=== PATIENT | male | born 2000 | race Caucasian/White ===

== ENCOUNTER 2018-09-13 10:00 | Emergency (ER) | payer SELFPAY ==
[~2018-09-13] VITALS: Ht 180.3 cm; Wt 90.7 kg
--- NOTE | 2018-09-13 10:10 | NUR ---
FOOT ELEVATED ON PILLOWS.
--- NOTE | 2018-09-13 10:15 | NUR ---
WARM BLANKET PUT ON PT'S FOOT.
--- NOTE | 2018-09-13 11:11 | Diagnostic Imaging Report ---
EXAMINATION: Right ankle at 10:21H. INDICATION: Injury ankle pain. 3 views were obtained. There are no prior studies available for comparison. There is no fracture, dislocation or acute bony abnormality evident. The ankle mortise is not widened. The talar dome is smooth. There is generalized soft tissue edema about the ankle joint, particularly over the lateral malleolus. IMPRESSION: There is soft tissue edema about the ankle joint but there is no evidence for an acute bony abnormality. Dictated by: Dictated on workstation # [id number]
--- NOTE | 2018-09-13 11:14 | NUR ---
PT REQUETS SOMETHING TO DRINK. NOTIFIED NOT UNTIL THE RESULTS CAME BACK.
--- NOTE | 2018-09-13 11:20 | NUR ---
IN ROOM AT THIS TIME.
--- NOTE | 2018-09-13 11:22 | Diagnostic Imaging Report ---
EXAMINATION: Right foot 1024h. INDICATION: Injury 3 views were obtained. There is no fracture, dislocation or acute bony abnormality evident. The Lisfranc joint appears to be intact. There is mild generalized soft tissue edema. There is no radiopaque foreign body identified. IMPRESSION: There is soft tissue edema of the foot but there is no for evidence of an acute bony abnormality or for a radiopaque foreign body. Dictated by: Dictated on workstation # [id number]
--- NOTE | 2018-09-13 11:24 | NUR ---
ICE CHIPS GIVEN
--- NOTE | 2018-09-13 11:34 | ED Lower Extremity ---
General Chief Complaint: Lower Extremity Stated Complaint: ANKLE INJ Nursing Triage Note: ARRIVED VIA AMB USING CRUTCHES. STATES HE HURT HIS RIGHT FOOT/ANKLE PLAYING BASKETBALL X2 DAYS AGO. WENT TO THE [facility] TODAY WHO SENT HIM HERE. Nursing Sepsis Screen: No Definite Risk Source: patient Exam Limitations: no limitations History of Present Illness Date Seen by Provider: Sep 13, 2018 Time Seen by Provider: 10:01 Initial Comments This 18-year-old young man presents to the emergency room as directed by Dr. Akbar from [facility] Student [facility] with concerns about a right foot and ankle injury. Patient rolled his foot by inversion while playing basketball 2 days ago. It has become markedly swollen and bruised. This morning his toes became cool and pale with sluggish capillary refill. His great toe has also become more fixed in a plantar flexed position. Dr. Akbar was concerned about possible compartment syndrome or limb ischemia and sent him to the emergency room. He denies any other injury. He has been ambulating with crutches. Allergies and Home Medications Allergies Coded Allergies: No Known Drug Allergies (Unverified , 09/13/18) Home Medications No Active Prescriptions or Reported Meds Patient Home Medication List Home Medication List Reviewed: Yes Review of Systems Constitutional: no symptoms reported EENTM: no symptoms reported Respiratory: no symptoms reported Cardiovascular: see HPI Gastrointestinal: no symptoms reported Genitourinary: no symptoms reported Musculoskeletal: see HPI Skin: see HPI Psychiatric/Neurological: No Symptoms Reported Past Ouholro-Cqevwz-Ovetkr Hx Past Med/Social Hx: Reviewed Nursing Past Med/Soc Hx Patient Social History Recent Foreign Travel: No Contact w/Someone Who Travel: No Recent Infectious Disease Expo: No Seasonal Allergies Seasonal Allergies: No Past Medical History Surgeries: No Respiratory: No Cardiac: No Neurological: No Genitourinary: No Gastrointestinal: No Musculoskeletal: No Endocrine: No HEENT: No Cancer: No Psychosocial: No Integumentary: No Physical Exam Vital Signs Vital Signs - First Documented 09/13/18 10:05 Temp 98.0 Pulse 85 Resp 16 B/P (MAP) 167/97 (120) Pulse Ox 96 O2 Delivery Room Air Capillary Refill : Less Than 3 Seconds Height, Weight, BMI Height: 5'11.00" Weight: 200lbs. oz. 90.598056fc; BMI Method:Stated General Appearance: WD/WN, mild distress HEENT: normal ENT inspection Neck: normal inspection Cardiovascular: regular rate, rhythm, no edema, no murmur Respiratory: lungs clear, normal breath sounds, no respiratory distress Gastrointestinal: non tender, soft Legs: bilateral leg non-tender, bilateral leg normal inspection, bilateral leg normal range of motion Knees: bilateral knee non-tender, bilateral knee normal inspection, bilateral knee normal range of motion, bilateral knee no evidence of injury Ankles: left ankle non-tender, left ankle normal inspection, left ankle normal range of motion; right ankle bone tenderness, right ankle ecchymosis, right ankle joint effusion, right ankle limited range of motion, right ankle pain, right ankle soft tissue tenderness, right ankle swelling Feet: left foot non-tender, left foot normal inspection, left foot normal range of motion, left foot no evidence of injury; right foot bone tenderness, right foot ecchymosis, right foot limited range of motion, right foot pain, right foot soft tissue tenderness, right foot swelling Neurologic/Tendon: normal sensation, normal motor functions Neurologic/Psychiatric: 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, no motor/sensory deficits, alert, normal mood/affect, oriented x 3 Skin: warm/dry, ecchymosis Progress/Results/Core Measures Results/Orders My Orders Orders - JOSEFINA BRAGG MD Us Right Low Ext [id number] (09/13/18 10:07) Us Venous Lower Ext Rt (09/13/18 10:07) Foot, Right, 3 View (09/13/18 10:07) Ankle, Right, 3 Views (09/13/18 10:07) Steplite (09/13/18 12:20) Vital Signs/I&O 09/13/18 09/13/18 10:05 12:42 Temp 98.0 Pulse 85 78 Resp 16 16 B/P (MAP) 167/97 (120) 152/99 (116) Pulse Ox 96 98 O2 Delivery Room Air Room Air Blood Pressure Mean: 120 Progress Progress Note #1: Time: 11:30 Progress Note X-rays and arterial and venous ultrasounds were obtained. X-rays of the foot and ankle showed no fractures. Ultrasound demonstrated no venous abnormality. There was a significant decrease in flow in the dorsalis pedis artery but the artery was patent. I discussed the case with both Dr. Fortune and Dr. Suggs. For the time being, Dr. Suggs recommended monitoring the patient. He suggested significant elevation and a repeat exam in 1 to 2 hours. He recommended testing for pain with passive dorsiflexion of the lesser toes. This yielded very little change in pain level and was well-tolerated. Dr. Suggs believes based on exam finding that compartment syndrome is of low probability. If patient has any worsening of exam when reevaluated, we will consider obtaining compartment pressures. Progress Note #2: Progress Note Dr. Jordan presented to the emergency room on behalf of Dr. Suggs to assess the patient. He did not feel this patient was experiencing compartment syndrome. He recommended a boot and crutches for 3 weeks and strict elevation. Discharge instructions were reviewed with the patient had notes for school were provided. Diagnostic Imaging Diagonstic Imaging: Xray Comments Right foot x-ray viewed by me and report reviewed. Discussed with the radiologist. See report below: NAME: ADAMA ARCHER [facility] REC#: [id number] PT STATUS: REG ER : 2000 PHYSICIAN: JOSEFINA BRAGG MD ADMIT DATE: 09/13/18/ER Draft Date of Exam:09/13/18 FOOT, RIGHT, 3 VIEW EXAMINATION: Right foot 1024h. INDICATION: Injury 3 views were obtained. There is no fracture, dislocation or acute bony abnormality evident. The Lisfranc joint appears to be intact. There is mild generalized soft tissue edema. There is no radiopaque foreign body identified. IMPRESSION: There is soft tissue edema of the foot but there is no for evidence of an acute bony abnormality or for a radiopaque foreign body. Dictated on workstation # [id number] Dict: 09/13/18 1108 Trans: 09/13/18 1121 [facility] [id number] Interpreted by: ALESIA FORTUNE MD Diagonstic Imaging: Xray Plain Films/CT/US/NM/MRI: ankle Comments Right ankle x-ray viewed by me and report reviewed. Discussed with the radiologist. See report below: NAME: ARCHERJOSEADAMA Noe [facility] REC#: [id number] PT STATUS: REG ER : 2000 PHYSICIAN: JOSEFINA BRAGG MD ADMIT DATE: 09/13/18/ER Draft Date of Exam:09/13/18 ANKLE, RIGHT, 3 VIEWS EXAMINATION: Right ankle at 10:21H. INDICATION: Injury ankle pain. 3 views were obtained. There are no prior studies available for comparison. There is no fracture, dislocation or acute bony abnormality evident. The ankle mortise is not widened. The talar dome is smooth. There is generalized soft tissue edema about the ankle joint, particularly over the lateral malleolus. IMPRESSION: There is soft tissue edema about the ankle joint but there is no evidence for an acute bony abnormality. Dictated on workstation # [id number] Dict: 09/13/18 1106 Trans: 09/13/18 [address]111 [facility] [id number] Interpreted by: ALEISA FORTUNE MD Departure Impression Primary Impression: Severe sprain of right ankle Qualified Codes: S93.401A - Sprain of unspecified ligament of right ankle, initial encounter Disposition: HOME, SELF-CARE Condition: Improved Departure-Patient Inst. Decision time for Depature: 12:15 Patient Instructions: Ankle Sprain (DC) Add. Discharge Instructions: Use the boot as much as possible for the next 3 weeks. You may remove the boot to shower. Follow-up with Dr. Jordan or Dr. Suggs within one week. For pain take ibuprofen up to 600 mg every 6 hours as needed and/or Tylenol ( acetaminophen) up to 1000 mg every 6 hours. Ice in 20 minute intervals to reduce pain and swelling. You may place a large bag of ice over the boot or remove the boot to ice. It is very important that she elevate your foot and lower leg as much as possible, preferably above the level of your heart. This is the fastest way to reduce the swelling and improve the blood flow to your foot. Return to care immediately if you develop loss of feeling in your toes or a severe increase in pain in your foot or if you develop loss of capillary refill in the skin of your foot or toes. All discharge instructions reviewed with patient and/or family. Voiced understanding. Scripts No Active Prescriptions or Reported Meds Work/School Note: School/Childcare Release Date Seen in the Emergency Department: Sep 13, 2018 Return to School: Sep 14, 2018 Other Restrictions Listed Below: Elevate to desk level as much as possible for 3 weeks. Restrictions: Allow accommodations for crutches and boot for 3 weeks. Copy Copies To 1: PORFIRIO AKBAR MD, JOSHUA T MD Sep 13, 2018 11:33
--- NOTE | 2018-09-13 12:00 | NUR ---
DR GARCIA HERE TO SEE PT.
[2018-09-13 12:42] VITALS: BP 152/99
--- NOTE | 2018-09-13 15:18 | Diagnostic Imaging Report ---
PROCEDURE: US right lower extremity venous. TECHNIQUE: Multiple real-time grayscale images were obtained over the right lower extremity in various projections. Additional spectral analysis and color Doppler duplex images were also obtained. INDICATION: Leg pain and swelling. There are no prior studies available for comparison. There is generally good blood flow and compressibility at all levels. There is no evidence for deep venous thrombosis. IMPRESSION: There is no evidence for deep venous thrombosis of the right lower extremity. Dictated by: Dictated on workstation # [id number]
--- NOTE | 2018-09-13 15:23 | Diagnostic Imaging Report ---
INDICATION: Leg pain and swelling. EXAMINATION: Right lower extremity Doppler. Spectral and color flow imaging of the arterial system of the right lower extremity were performed. COMPARISON: There are no prior studies available for comparison. FINDINGS: There is good arterial blood flow in the common femoral, superficial femoral and popliteal arteries. Triphasic waveforms were seen and there is no abrupt alteration of the velocities to suggest a hemodynamically significant stenosis. There is also blood flow in the trifurcation arteries although the waveforms do appear dampened. Furthermore, there is a marked reduction in the velocity in the dorsalis pedis artery. There is only a small amount of blood flow in this vessel. The reason for the diminished arterial blood flow is of uncertain etiology. There is no evidence for an intra-arterial thrombus. IMPRESSION: 1. There is generally good arterial blood flow to the right lower extremity but there is markedly reduced velocity of the dorsalis pedis artery. 2. These results were discussed with Dr. Kothari in the ER. Dictated by: Dictated on workstation # [id number]
--- NOTE | 2018-09-13 23:04 | CONSULTATION REPORT ---
DATE OF SERVICE: 09/13/2018 ORTHOPEDIC CONSULTATION IMPRESSION: Grade III right ankle sprain. RECOMMENDATIONS: 1. Controlled ankle motion walker boot immobilization right ankle. 2. Continue crutch ambulation touchdown weightbearing right leg. 3. Aggressive strict elevation of the right lower extremity above heart level. 4. Continued ice application, right ankle and right foot times in next 48 to 72 hours. HISTORY AND PHYSICAL EXAMINATION: The patient is a 18-year-old male who was seen in the emergency room at [facility]. The patient has been playing basketball with friends on the Tuesday prior to this Tuesday examination. The patient states that he went to cut and push off on his right foot and his right ankle inverted and rolled. He noted immediate pain and difficulty ambulating afterwards. The patient had obtained crutches on the day following that. He has been backing off the weight that he was bearing on his right lower extremity. He began noticing increased pain and noted an inability to fully extend his interphalangeal joint of the right great toe without discomfort, presented to the emergency room. There was a concern about the possibility of a compartment syndrome and orthopedic consultation was requested. On exam, the patient demonstrates significant swelling over the medial and lateral aspect of the right ankle. The patient has no tenderness over the deltoid ligament. The patient has significant tenderness over the entire lateral ligamentous complex of the right ankle including the anterior talofibular ligament, calcaneofibular ligament and the posterior talofibular ligament. There is no tenderness in the interosseous space. He has swelling on the dorsal aspect of the right foot. He has intact sensation to the toes of the right foot. His dorsalis pedis is difficult to palpate. He has good capillary refill in the toes with compression of the nail bed. The patient maintains the right toe in a 45-degree flexed position. He has pain when he attempts to actively extend the great toe on the right, but his toe can be extended, when this is performed, he has some tenderness over the posterior medial aspect of his right ankle. On compressing his compartments in the right ankle, the patient demonstrates no evidence of distention of his calf compartments. He has no pain with compression of his calf musculature on the right compared to his uninvolved left leg. There is ecchymosis over the posterolateral aspect of the right heel. There is ecchymosis on the lateral aspect of the right ankle. He does not have tenderness otitis over his anterior compartment on deep palpation. X-rays of the right ankle were reviewed revealing no fracture or dislocation, there is no widening of the mortise. X-rays also obtained in the emergency room in the patient's right foot demonstrates no bony abnormalities. Concern from the emergency room personnel was that the patient's difficulty in extending his great toe on the right. He does not have any clinical evidence of elevated compartment pressures on his exam. He has some mild discomfort with ankle dorsiflexion and plantar flexion. He has a significant amount of tenderness with any attempts to passively inward the left ankle. The fact his x-rays demonstrated no abnormalities. The fact that he has intact sensation, good capillary refill was reviewed with the patient. I would recommend the patient be placed in a controlled ankle motion walker boot. He does have crutches at this time. I have asked the patient to continue with touchdown weightbearing only. He has only been elevating his ankle somewhat at nighttime and have discussed the fact that he is to strictly elevate his right foot and ankle above heart level and continue with ice application to his right ankle to decrease amount of swelling he has in his right lower extremity. I will follow the patient for repeat examination in the office in one week's time, advised the patient that more than likely he will require the boot on his right ankle for at least 3 weeks then we would advance him into Aircast type brace for that. Thank you for allowing me to participate in this patient's care. Job ID: [id number] DocumentID: [id number] Dictated Date: 09/13/2018 13:50:33 Press Machine Feeder Date: 09/13/2018 23:03:56 Dictated By: KM GARCIA DO
== END 2018-09-13 12:44 | disposition home or self-care (01) ==
LOC: ER 10:01
DX: S93.401A Sprain of unspecified ligament of right ankle, initial encounter (principal); X50.1XXA Overexertion from prolonged static or awkward postures, initial encounter; Y93.67 Activity, basketball
CPT/HCPCS: 73610; 73630; 93926